=== PATIENT | female | born 1935 | race Caucasian/White ===

== ENCOUNTER 2017-09-07 13:36 | Outpatient (CLI) | payer MEDICARE | END 2017-09-07 13:37 | disposition home or self-care (01) | LOC: BICRAD 13:36 | PROVIDERS: ATTEND Podiatrist | DX: M25.571 Pain in right ankle and joints of right foot (principal); R60.0 Localized edema; M19.071 Primary osteoarthritis, right ankle and foot ==

== ENCOUNTER 2018-07-27 08:49 | Outpatient (CLI) | payer MEDICARE ==
--- NOTE | 2018-07-27 14:31 | MRI ---
MRI LUMBAR SPINE WITHOUT CONTRAST: INDICATIONS: Bilateral leg pain and back pain. COMPARISON: None. FINDINGS: There is slight retrolisthesis of L3 on L4, L2 on L3, L1 on L2, and T12 on L1. The conus seems to te rminate at T12-L1. The visualized retroperitoneum and paravertebral soft tissues appear within kwame l limits. Bone marrow signal intensity appears within normal limits. L5-S1: There is moderate facet joint degenerative change and a broad-based bulge, inducing mild encr oachment on the neural foramina, without definite impingement. L4-L5: There is a broad-based disk osteophyte complex and facet hypertrophy, inducing mild bilateral neural foraminal narrowing. L3-L4: There is mild central canal narrowing and moderate bilateral neural foraminal narrowing due t o a broad-based disk osteophyte complex and facet hypertrophy. L2-L3: There is a broad-based disk osteophyte complex and facet hypertrophy inducing mild central ca nal narrowing and at least moderate bilateral neural foraminal narrowing. L1-L2: There is disk osteophyte complex with facet hypertrophy, inducing mild central canal narrowin g and moderate bilateral neural foraminal narrowing. T12-L1: There is a broad-based bulge without appreciable central canal or neural foraminal narrowing . IMPRESSION: Multilevel spondylosis of the lumbar spine with multilevel central canal and neural foraminal narrowi ng, as detailed above. POS: [facility]
== END 2018-07-27 08:50 | disposition home or self-care (01) ==
LOC: MRI 08:49
PROVIDERS: ATTEND Neurological Surgery
DX: M47.26 Other spondylosis with radiculopathy, lumbar region (principal); M48.061 Spinal stenosis, lumbar region without neurogenic claudication; M99.83 Other biomechanical lesions of lumbar region
CPT/HCPCS: 72148

== ENCOUNTER 2018-09-28 10:22 | Outpatient (CLI) | payer MEDICARE ==
--- NOTE | 2018-09-28 12:46 | CT ---
CT ABDOMEN AND PELVIS WITH IV CONTRAST: Date: 09-28-18 History: Upper abdominal pain and bloating for the last two months. Patient reports tumor removed fro m abdomen in February. History of hysterectomy. Lumbar radiculopathy. Comparison: None available. FINDINGS: There are two nodular densities seen at the posterior aspect of each lung base measuring 5 mm at the posteromedial right lung base and 4 mm at the posterolateral left lung base. Minimal bibasilar atelec tasis is present. Dense vascular calcifications are seen in the abdominal aorta involving the iliac arteries. Dense vas cular calcification is seen in the visualized coronary arteries. Degenerative changes are present in the spine. Subcentimeter too small to characterize hypodense lesions are seen within the right kidney with large r exophytic 12 mm hypodense lesion midportion of the right kidney which is difficult to definitely ch aracterize but also probably represents a cyst. A few tiny subcentimeter too small to characterize hy podense lesions are seen in the left kidney. The liver, spleen, pancreas, bilateral adrenal glands, urinary bladder, and opacified small bowel dem onstrate a normal CT appearance. There is a duodenal diverticulum seen at the junction of the second and third portion of the duodenum . The uterus is not visualized, likely related to prior hysterectomy. No free fluid, fluid collection, or lymphadenopathy is seen in the abdomen or pelvis. IMPRESSION: 1. Nonspecific pulmonary nodules seen at each lung base, largest in the right lung base measuring 5 m m. 2. Subcentimeter too small to characterize hypodense lesions in each kidney. 3. Dense vascular calcifications involving the coronary arteries as well as the visualized lower thor acic, and abdominal aortic and iliac arteries. 4. Hysterectomy. 5. No acute findings are seen in the abdomen or pelvis. POS: [facility]
== END 2018-09-28 10:23 | disposition home or self-care (01) ==
LOC: BICCT 10:22
PROVIDERS: ATTEND Physician Assistant Medical
DX: R10.9 Unspecified abdominal pain (principal); D50.0 Iron deficiency anemia secondary to blood loss (chronic); R19.00 Intra-abdominal and pelvic swelling, mass and lump, unspecified site; R91.8 Other nonspecific abnormal finding of lung field; N28.9 Disorder of kidney and ureter, unspecified; I25.10 Atherosclerotic heart disease of native coronary artery without angina pectoris; I70.0 Atherosclerosis of aorta; I70.8 Atherosclerosis of other arteries; Z86.010 Personal history of colon polyps; Z90.710 Acquired absence of both cervix and uterus
CPT/HCPCS: 74177; 82565

== ENCOUNTER 2018-10-31 08:24 | Outpatient (CLI) | payer MEDICARE ==
--- NOTE | 2018-10-31 13:34 | NM ---
RADIONUCLIDE HEPOTOBILIARY SCAN WITH GALLBLADDER EJECTION FRACTION: History: Abdominal pain with nausea. FINDINGS: Early images show physiologic uptake of radiotracer throughout the hepatic parenchyma. Gallbladder fi rst imaged at 6 minutes. Uptake is apparent within the small bowel at [address] of medication, 8 oz of fatty meal was used. Gallbladder ejection fraction calculated at 72%. IMPRESSION: Normal hepatobiliary scan and gallbladder ejection fraction. POS: [facility]
== END 2018-10-31 08:25 | disposition home or self-care (01) ==
LOC: NM 08:24
PROVIDERS: ATTEND Internal Medicine
DX: R10.9 Unspecified abdominal pain (principal); R11.2 Nausea with vomiting, unspecified
CPT/HCPCS: 78227; A9537